=== PATIENT | female | born 1975 | race African-American/Black ===

== ENCOUNTER 2019-02-01 09:11 | Outpatient (CLI) | payer BC ==
[2019-02-01 10:24] LABS: Hemoglobin 9.2 g/dL (12.0-16.0); Mean Corpuscular HGB CONC 31.4 g/dL (32.0-36.0); Mean Corpuscular Hemoglobin 28.8 pg (27.0-31.0); Mean Corpuscular Volume 91.7 fL (78.0-98.0); Mean Platelet Volume 6.5 fL (7.4-10.4); Platelet Count 544 thou/uL (130-400); RBC Distribution Width 12.4 % (11.5-14.5); Red Blood Cell (RBC) Count 3.18 mill/uL (4.20-5.40); White Blood Cell (WBC) Count 5.3 thou/uL (4.8-10.8)
[2019-02-01 10:32] LABS: BHCG - Serum Negative (NEGATIVE); Pregs Control Background? CLEAR/WHITE (CLR/WHITE); Pregs Control Bar Appear? YES (CONTROL BAR)
== END 2019-02-01 09:12 | disposition home or self-care (01) ==
LOC: LABBT 09:11
PROVIDERS: ATTEND Obstetrics & Gynecology
DX: Z01.812 Encounter for preprocedural laboratory examination (principal); D21.9 Benign neoplasm of connective and other soft tissue, unspecified; N93.9 Abnormal uterine and vaginal bleeding, unspecified
CPT/HCPCS: 84703; 85027

== ENCOUNTER 2019-02-05 10:06 | Day surgery (SDC) | payer BC ==
[2019-02-01 09:46] VITALS: BMI 30.8
[2019-02-05] MEDS ORDERED: Lidocaine 1% w/Epinephrine 1:100K 20 ML VIAL ONE (10:19)
[2019-02-05] MEDS ORDERED: PROPOFOL 200 MG/20 ML VIAL ONE (10:45)
[2019-02-05] MEDS ORDERED: Glycopyrrolate 0.2 MG/ML 5 ML SYRINGE ONE (10:45)
[2019-02-05] MEDS ORDERED: Dexamethasone 20 MG/5 ML VIAL ONE (10:45)
[2019-02-05] MEDS ORDERED: Rocuronium Bromide 10 MG/ML (10ML VIAL) ONE (10:45)
[2019-02-05] MEDS ORDERED: Ondansetron PF 4 MG/2 ML Vial ONE (10:45)
[2019-02-05] MEDS ORDERED: Gabapentin 300 MG CAP ONE (10:51)
[2019-02-05] MEDS ORDERED: Midazolam HCl 2 mg/2 ml Vial ONE ×2 (10:51→11:56)
[2019-02-05] MEDS ORDERED: CeleCOXIB 100 MG CAP ONE (10:51)
[2019-02-05] MEDS ORDERED: Famotidine/PF 20 mg/2ml Vial ONE (10:51)
[2019-02-05] MEDS ORDERED: HYDROmorphone 0.5 MG/0.5 ML SYRINGE ONE (11:56)
[2019-02-05] MEDS ORDERED: Fentanyl 100 MCG/2 ML VIAL ONE ×2 (11:56→12:21)
[2019-02-05] MEDS ORDERED: Scopolamine 1.5 mg/72 hour Patch ONE (12:21)
[2019-02-05] MEDS ORDERED: Ropivacaine 0.2% 550 ML 750 ML NERVE BLCK SCH (13:00)
[2019-02-05] MEDS ORDERED: Ropivacaine HCl/PF 750 ML in Premix Bag 1 BAG NERVE BLCK SCH (13:15)
[2019-02-05] MEDS ORDERED: Bupivacaine 0.25% HCL 30 ML VIAL ONE (13:26)
[2019-02-05] MEDS ORDERED: Bisacodyl 10 MG SUPP PR PRN (14:18)
[2019-02-05] MEDS ORDERED: diphenhydrAMINE 25 MG CAP PO PRN (14:18)
[2019-02-05] MEDS ORDERED: Simethicone Chewable 80 MG TAB PO PRN (14:18)
[2019-02-05] MEDS ORDERED: Morphine 4 MG/ML VIAL SLOW IVP PRN (14:18)
[2019-02-05] MEDS ORDERED: Promethazine HCl 25 MG/ML VIAL IM PRN ×2 (14:18→14:44)
[2019-02-05] MEDS ORDERED: HYDROcodone/Acetaminophen 5/325 mg Tablet PO PRN ×2 (14:18)
[2019-02-05] MEDS ORDERED: Zolpidem Tartrate 5 MG TAB PO PRN (14:18)
[2019-02-05] MEDS ORDERED: Ondansetron PF 4 MG/2 ML Vial IVP PRN (14:18)
[2019-02-05] MEDS ORDERED: Promethazine HCl 25 MG/ML VIAL SLOW IVP PRN (14:44)
[2019-02-05] MEDS ORDERED: Ondansetron HCl/PF 4 MG/2 ML Vial IVP PRN (14:44)
[2019-02-05] MEDS: Ketorolac Tromethamine 30 MG/ML VIAL IVP SCH (18:56)
[2019-02-05] MEDS: Sodium Chloride 0.9% 1,000 ML IV SCH ×2 (19:31→20:25)
[2019-02-05] MEDS: Calcium Carbonate + Vit D 1 TAB PO SCH (20:25)
[2019-02-05] MEDS ORDERED: Multivit, Therapeutic 1 TAB PO SCH (21:00)
--- NOTE | 2019-02-05 22:10 | OP ---
DATE OF PROCEDURE: 02/05/2019 PREOPERATIVE DIAGNOSES: Menorrhagia, fibroids, chronic anemia. POSTOPERATIVE DIAGNOSES: Menorrhagia, fibroids, chronic anemia. PROCEDURES PERFORMED: Robotic-assisted total laparoscopic hysterectomy with bilateral salpingectomy, ON-Q pump placement. ELEVATOR PILOT: Crystal Kaplan PA-C. COMPLICATIONS: None. ESTIMATED BLOOD LOSS: 75 mL. ANESTHESIA: GETA. OPERATIVE FINDINGS: 1. Normal-appearing uterus and cervix. 2. Uterus sounds to 10 cm. INTRAABDOMINAL FINDINGS: 1. No intraabdominal adhesive disease. Multiple serosal fibroids noted including one approximately 4 cm left lateral fundal fibroid. 2. Normal-appearing fallopian tubes and ovaries bilaterally. 3. Small peritoneal cyst removed near the uterosacral ligament suspicious for endometriosis, sent for pathologic review. 4. Surgical site hemostatic. 5. Vaginal cuff. Hemostatic normal vaginal exam at the end of the case. DESCRIPTION OF PROCEDURE: The patient was taken back to the OR with IV fluids running. When she was in the OR, she was placed into a dorsal supine position, and anesthesia was obtained. Once the patient was asleep, she was placed in the low dorsal lithotomy position. The abdomen and vagina were prepped and draped in normal fashion for gynecologic laparoscopy. Her arms were tucked at her side. Beginning at the case after the surgeons were gowned and gloved, a Odell catheter was placed in the bladder and drained approximately 250 mL of urine. Jaziel syringe was placed at the tip of the catheter for bladder manipulation if needed during the case. An operative speculum was placed in the vagina. The anterior lip of the cervix was grasped. The uterus was sounded to 10 cm. A Yibailin manipulator was assembled with 3.5 cm cup and a 10 cm tip and placed into the uterus, cervix, and vagina in normal fashion, and the intravaginal and intrauterine balloons were inflated. The surgeon's gloves were changed. The attention was turned to the laparoscopic portion of the case. Beginning above the supraumbilical fold, Marcaine was injected underneath the skin. A 12 mm skin incision was made with a scalpel. The Veress needle was placed through the skin incision, and the abdomen was insufflated without difficulty. After the abdomen was fully distended, the Veress needle was removed. A 12 mm trocar was placed and the laparoscope was placed through the trocar with the above findings noted. The patient was then placed in Trendelenburg position. The left and right lower quadrant 8 mm robotic ports were then placed using similar technique under direct visualization as well as the right upper quadrant 11 mm port. After all four ports were placed, the robotic arms were docked. The monopolar scissors and bipolar fenestrated graspers were placed through the trocars under direct visualization into the operative field. Beginning on the patient's left side, the left fallopian tube was elevated away from the ovary, it was dissected off the ovary with a combination of bipolar and monopolar cautery , and then dissected from the mesosalpinx and uterus. After it was completely dissected from the pelvic anatomy, it was removed for pathologic review. The utero- ovarian ligament was then cauterized and transected allowing the left ovary to fall to the left pelvic sidewall. The round ligament on the patient's left side inserted near a left fundal fibroid was identified, cauterized, and transected. It was then divided into anterior and posterior leaves down toward the level of the uterine artery. The bladder reflection was identified on the patient's left side, and the dissection of the anterior leaf was taken down toward the bladder reflexion. The uterine artery was then skeletonized and cauterized and transected. Next, attention was turned to the contralateral side. The right fallopian tube was grasped and elevated away from the pelvic sidewall and surgically removed using similar technique. The utero-ovarian ligament on the patient's right side was cauterized and transected allowing the right ovary to fall away to the pelvic sidewall. The round ligament on the patient's right side was easily identified, cauterized, and transected, was dissected into anterior and posterior leaves toward to the level of the uterine artery. The bladder was then backfilled and noted to be away from the cervix and planned colpotomy site. The bladder reflection was then dissected, and the bladder was gently dissected away from the planned colpotomy site. The uterine artery on the patient's right side was skeletonized. Collateral vessels were identified, cauterized, and transected as well as the uterine artery. Once the blood supply had been controlled bilaterally and the bladder was dissected away from the planned colpotomy site, the colpotomy was completed with monopolar cautery over the Nan-Clarice manipulator cup. This was completed with good visualization throughout the colpotomy and without difficulty and with minimal blood loss. The uterine specimen was then retracted into the vagina. The ovaries and surgical pedicles and vaginal cuff were irrigated and suction dried. Any small areas of bleeding were controlled with bipolar cautery. The vaginal cuff was then closed with Stratafix suture in a running fashion and in 2 layers. Once the vaginal cuff was closed, the surgical pedicles and dissection were irrigated and suctioned dry. The pressure was dropped to 8 mmHg with no evidence of bleeding. The ureters were identified bilaterally and both noted to be vermiculating away from the areas of dissection. A layer of Tisseel was laparoscopically applied along the vaginal cuff. An ON-Q catheter tip was placed under direct visualization through the anterior abdominal wall, primed and laid into the cul-de-sac. All instruments were removed. The counts were correct. The gas was released from the abdomen. The supraumbilical trocar site was closed at the fascia with Vicryl suture. All four skin incisions were closed with Monocryl suture and dressed with Dermabond dressing. A sterile dressing was applied over the On-Q catheter insertion site. The vagina was inspected at the end of the case, and no bleeding was noted. The patient tolerated the procedure well. There were no complications. Job ID: [id number] [facility]
[2019-02-06] MEDS: Ketorolac Tromethamine 30 MG/ML VIAL IVP SCH (00:42)
[2019-02-06 05:00] LABS: Hemoglobin 8.9 g/dL (12.0-16.0); Mean Corpuscular HGB CONC 32.4 g/dL (32.0-36.0); Mean Corpuscular Hemoglobin 28.9 pg (27.0-31.0); Mean Corpuscular Volume 89.3 fL (78.0-98.0); Mean Platelet Volume 6.6 fL (7.4-10.4); Platelet Count 435 thou/uL (130-400); RBC Distribution Width 12.8 % (11.5-14.5); Red Blood Cell (RBC) Count 3.06 mill/uL (4.20-5.40); White Blood Cell (WBC) Count 9.8 thou/uL (4.8-10.8)
[2019-02-06] MEDS ORDERED: Ibuprofen 800 MG TAB PO SCH (06:00)
[2019-02-06] MEDS: Sodium Chloride 0.9% 1,000 ML IV SCH (06:10)
[2019-02-06 08:16] VITALS: BP 125/70; TEMP 98.7
[2019-02-06] MEDS ORDERED: FLU VACC QS2019-20(6MOS UP)/PF 60 MCG/0.5 ML SYRINGE IM ONE (09:00)
[2019-02-06] MEDS: Calcium Carbonate + Vit D 1 TAB PO SCH (09:30)
--- NOTE | 2019-02-06 10:32 | PDOC.EVN ---
Event Note - Event Note Event Note: POD1 Doing well shubham GARZA for fibroids. TOlerating regular diet, minimal discomfort, minimal spotting yesterday, ambulating and voiding VS WNL NAD A and O Abd incisions CDI, nondistended, appropriate post op tenderness Ext no cords or edema A/P: POD1 doing well, post op goals met. Plan for DC today.
--- NOTE | 2019-02-07 04:56 | DIS ---
DATE OF ADMISSION: 02/05/2019 DATE OF DISCHARGE: 02/06/2019 ADMISSION DIAGNOSIS: Planned robotic assisted laparoscopic hysterectomy with bilateral salpingectomy. DISCHARGE DIAGNOSIS: Planned robotic assisted laparoscopic hysterectomy with bilateral salpingectomy. HOSPITAL COURSE: Ms. Radha Bianchi was admitted on 02/05/2019 for planned robotic-assisted total laparoscopic hysterectomy with bilateral salpingectomy and ON-Q pump placement. The patient underwent the aforementioned procedure without complication. By postoperative day #1, she was ambulating and tolerating regular diet, voiding without difficulty. The pain was controlled with the ON-Q pump and oral medications, and postop goals were met. The patient was discharged home on postoperative day #1 in good condition with plans to continue pelvic rest. Postop pain management was reviewed and she was discharged home in good condition. Job ID: [id number]
== END 2019-02-06 11:22 | disposition home or self-care (01) ==
LOC: SDC 10:06 → 3SE 14:17 → SDC 02-06 11:22
PROVIDERS: ATTEND Obstetrics & Gynecology
DX: D25.0 Submucous leiomyoma of uterus (principal); N83.8 Other noninflammatory disorders of ovary, fallopian tube and broad ligament; Z88.8 Allergy status to other drugs, medicaments and biological substances
CPT/HCPCS: 36415; 85027; 86850; 86900; 86901; 88305; 88307; J0131; J0690; J1100; J1170; J1885; J2250; J2405; J2704; J2795; J3010; S0020; S0028